=== PATIENT | female | born 1965 | race Caucasian/White ===

== ENCOUNTER → 2016-12-20 | Outpatient (CLI) | payer BC ==
[~2016-12-20] MED LIST: B-COMPLEX-VITA1 EACH PO; COQ-10100 MG PO; CYTOMEL5 MCG PO; FISH OIL 1,0001 EAC7 PO; MICROZIDE12.5 M1 PO; MULTIVITAMIN1 EAC1 PO; PROBIOTIC1 EAC1 PO; SYNTHROID75 MCG PO; VITAMIN D2000 UNI1 PO
== END | disposition home or self-care (01) ==
LOC: CDC 09:42
DX: K64.4 Residual hemorrhoidal skin tags (principal); K64.9 Unspecified hemorrhoids; I44.0 Atrioventricular block, first degree; I49.9 Cardiac arrhythmia, unspecified; R94.31 Abnormal electrocardiogram [ECG] [EKG]
CPT/HCPCS: 93000